=== PATIENT | male | born 1945 | race Caucasian/White ===

== ENCOUNTER → 2018-09-30 | Outpatient (CLI) | payer MEDICARE, OTHER ==
--- NOTE | 2018-09-30 15:51 | MR ---
EXAMINATION TYPE: MR knee LT wo con DATE OF EXAM: 09/30/2018 COMPARISON: Outside left knee x-ray from 2 weeks ago. HISTORY: Pain in left knee per order. In her pain and swelling with history of surgery 7 years ago pe r patient. TECHNIQUE: Multiplanar, multisequence images of the knee is performed without IV contrast. FINDINGS: MEDIAL MENISCUS: Anterior horn is intact without tear. Posterior horn shows horizontal and oblique in creased signal extending to articular surface peripheral lower aspect and superior deeper aspect sagi ttal image 24. Medial extrusion medial meniscus seen on coronal images. LATERAL MENISCUS: Anterior and posterior horns are intact without tear. CRUCIATE LIGAMENTS: The anterior and posterior cruciate ligaments are intact and unremarkable. COLLATERAL LIGAMENTS: The medial collateral ligament and lateral collateral ligament complex are inta ct. There is fluid signal surrounding the medial collateral ligament particularly superficial fibers. There is cystic change noted along deeper fibers. EXTENSOR MECHANISM: Visualized quadriceps and patellar tendons are intact. EFFUSION: There is moderate size suprapatellar joint effusion. POPLITEAL CYST: No popliteal/cm cyst. TRICOMPARTMENT SPACES: Moderate tricompartment joint space loss and spurring is seen. CARTILAGE: Chondromalacia patella is present with some fissuring of articular cartilage lying posteri or patellar pole. There is more prominent thinning of cartilage medial tibial femoral compartment. BONE MARROW SIGNAL: Some areas reactive low T1 and increased T2 signal medial tibial femoral compartm ent joint space noted at site of moles prominent cartilaginous thinning. OTHER: No additional significant abnormality is appreciated. IMPRESSION: 1. Full-thickness tear posterior horn of medial meniscus. Adjacent parameniscal cyst formation noted. 2. Mild MCL sprain injury. 3. Moderate to borderline advanced tricompartment degenerative changes most prominent medial tibial f emoral compartment as detailed above. 4. Moderate suprapatellar joint effusion.
== END | disposition home or self-care (01) ==
LOC: RADMRIMAIN 14:34
PROVIDERS: ATTEND Orthopaedic Surgery
DX: S83.242A Other tear of medial meniscus, current injury, left knee, initial encounter (principal); S83.412A Sprain of medial collateral ligament of left knee, initial encounter; M17.12 Unilateral primary osteoarthritis, left knee

== ENCOUNTER → 2019-01-10 | Outpatient (CLI) | payer MEDICARE, OTHER | END | disposition home or self-care (01) | LOC: LABPAT 12:11 | PROVIDERS: ATTEND Orthopaedic Surgery | DX: Z01.810 Encounter for preprocedural cardiovascular examination (principal); Z01.812 Encounter for preprocedural laboratory examination | CPT/HCPCS: 93005 ==

== ENCOUNTER 2019-01-11 07:22 | Day surgery (SDC) | payer MEDICARE, OTHER ==
[2019-01-09 13:54] VITALS: BMI 33.1
--- NOTE | 2019-01-10 18:35 | HP ---
HISTORY AND PHYSICAL REASON FOR ADMISSION: Surgery is 01/11/2019 HISTORY OF PRESENT ILLNESS: Yazan Sanches is a 73-year-old patient seen with progressive left knee pain. Treatment options were discussed with him. He elected to proceed with arthroscopy. Consent was obtained. PAST MEDICAL HISTORY: Hypertension, hyperlipidemia. PAST SURGICAL HISTORY: None reported. MEDICATIONS: Amlodipine, atorvastatin. ALLERGIES: KEFLEX AND CIPRO. SOCIAL HISTORY: Denies tobacco use. PHYSICAL EXAMINATION: Evaluation of the left knee range of motion 0 to 125. Mild effusion. Tenderness medial joint line. Positive medial Demi's. Ligaments are stable. Hip rotation without pain. Distal neurovascular exam intact. Left knee radiographs revealed moderate osteoarthritis, left knee MRI revealed medial meniscal tear. IMPRESSION: 1. Internal derangement, left knee with medial meniscal tear. 2. Left knee osteoarthritis. 3. Hypertension. 4. Hyperlipidemia. PLAN: Left knee arthroscopy with partial meniscectomy and debridement. Surgery is scheduled for 01/11/2019. MMODL / IJN: [id number] /
[~2019-01-11 07:22] MED LIST: DEXAMETHASONE SOD PHOSPHATE 10 MG/ML 1 ML VIAL IV ONE; HYDROmorphone 0.5 MG/0.5 ML SYRINGE IVP PRN; LACTATED RINGERS 1,000 ML IV SCH; LIDOCAINE 1% 20 ML VIAL (10MG/ML) FOR IV START INTRADERMA PRN; MIDAZOLAM 2 MG/2 ML VIAL IV PRN; ONDANSETRON 4 MG/2 ML VIAL IVP ONE; SCOPOLAMINE 1.5MG/72HR PATCH TRANSDERM ONE
[2019-01-11] MEDS ORDERED: SUCCINYLCHOLINE CHLORIDE 100 MG/5 ML SYR IV ONE (08:40)
[2019-01-11] MEDS ORDERED: LIDOCAINE 1% INJ 10MG/ML (20 ML MDV) ONE (08:40)
[2019-01-11] MEDS ORDERED: fentaNYL (PF) 50 MCG/ML 2 ML AMP ONE (08:40)
[2019-01-11] MEDS ORDERED: PROPOFOL 10 MG/ML 20 ML VIAL IV ONE (08:40)
[2019-01-11] MEDS ORDERED: MIDAZOLAM 2 MG/2 ML VIAL ONE (08:40)
[2019-01-11] MEDS ORDERED: BUPIVACAIN-EPI 0.25%-1:200,000 30 ML VIAL INTRAARTIC ONE (09:15)
--- NOTE | 2019-01-11 09:38 | P.OP ---
Date of Procedure: 01/11/19 Preoperative Diagnosis: Internal derangement left knee Postoperative Diagnosis: 1. Tear medial meniscus left knee 2. Grade 2 chondromalacia medial femoral condyle left knee 3. Grade 2 chondromalacia lateral femoral condyle left knee 4. Grade 4 chondromalacia femoral sulcus left knee 5. Reactive synovitis medial, lateral and suprapatellar compartments left knee Procedure(s) Performed: 1. Arthroscopic partial medial meniscectomy left knee 2. Arthroscopic chondroplasty medial femoral condyle left knee 3. Arthroscopic chondroplasty lateral femoral condyle left knee 4. Arthroscopic chondroplasty femoral sulcus left knee 5. Arthroscopic partial synovectomy medial, lateral and suprapatellar compartments left knee Anesthesia: GETA, local Surgeon: Davie Aragon Estimated Blood Loss (ml): 7 Pathology: none sent Condition: stable Disposition: PACU Indications for Procedure: 73-year-old patient seen with progressive left knee pain. After having treatment options discussed, he elected to proceed with arthroscopy. Operative Findings: see description of procedure Description of Procedure: Patient was taken to the operative suite. Patient underwent a general anesthetic by the department of anesthesia. Patient was given preoperative antibiotics. The left lower extremity was placed in a well-padded arthroscopic leg bo. The left leg was prepped and draped in the normal sterile orthopedic fashion. A lateral parapatellar and suprapatellar incision was made. Trochars were inserted. Arthroscopy was initiated. Suprapatellar pouch revealed thick reactive synovitis. The patellofemoral joint appeared articulate congruently. There was grade 4 chondromalacia of the femoral sulcus with peripheral osteochondral flap tears. There was grade 2 chondral malacia patella. The scope was guided into the medial gutter. No loose bodies or plica were identified. The scope was then guided into the medial compartment. A medial parapatellar incision was made. Trocar inserted followed by probe. There was a complex tear involving the posterior horn medial meniscus. There were grade 2 chondromalacia changes medial femoral condyle with some osteochondral flap tears present. There was thick reactive synovitis anteriorly. I performed a partial medial meniscectomy getting down to stable meniscal tissue. I performed a chondroplasty of the medial femoral condyle. I performed a partial synovectomy. The residual meniscus was stable. There was good decompression of the synovitis. Scope and probe were then guided into the intercondylar notch. Cruciates were identified, probed and found to be stable. The scope and probe were then guided into lateral compartment. The lateral meniscus was probed and found to be stable. There was some mild fraying of the anterior horn lateral meniscus. There were grade 2 chondral malacia changes lateral femoral condyle with some osteochondral flap tears present. There was thick reactive synovitis anteriorly. I performed a chondroplasty lateral femoral condyle. I debrided the mild fraying of the lateral meniscus anteriorly. I performed a partial synovectomy decompressing reactive synovitis. The residual osteochondral surface was stable. There was good decompression of the synovitis. The scope was in guided back into the suprapatellar compartment. I introduced a motorized shaver into the suprapatellar compartment. I debrided some piecemeal fragments of meniscus I encountered. I performed a partial synovectomy decompressing the thick reactive synovitis. I performed a chondroplasty of the femoral sulcus. The shaver was removed. There was good decompression of synovitis. I took one more look around the entire knee, no residual debris. Instruments were now removed from the joint. The joint was infiltrated with .25% Marcaine. Steri-Strips were applied to the portal sites. Sterile dressings were applied. The patient was placed into a DALJIT hose. No tourniquet was utilized. The patient was awakened, transferred to a bed and taken to recovery stable satisfactory condition.
[2019-01-11 09:42] VITALS: TEMP 98.4
[2019-01-11 10:11] VITALS: BP 135/78; PULSE 62; RESP 16
== END 2019-01-11 11:28 | disposition home or self-care (01) ==
LOC: OR 07:22
PROVIDERS: ATTEND Orthopaedic Surgery
DX: M23.222 Derangement of posterior horn of medial meniscus due to old tear or injury, left knee (principal); M23.242 Derangement of anterior horn of lateral meniscus due to old tear or injury, left knee; M65.862 Other synovitis and tenosynovitis, left lower leg; M94.262 Chondromalacia, left knee; M17.12 Unilateral primary osteoarthritis, left knee; I10 Essential (primary) hypertension; E78.5 Hyperlipidemia, unspecified; N40.0 Benign prostatic hyperplasia without lower urinary tract symptoms; Z79.899 Other long term (current) drug therapy; Z88.1 Allergy status to other antibiotic agents; Z90.49 Acquired absence of other specified parts of digestive tract; Z98.890 Other specified postprocedural states
CPT/HCPCS: 29880; J2250; J1100; J0690; J2405; J2001; J3010; J0330; J2704

== ENCOUNTER 2022-12-24 10:14 | Day surgery (SDC) | payer MEDICARE, OTHER ==
--- NOTE | 2022-12-24 01:15 | HP ---
HISTORY AND PHYSICAL DATE OF SURGERY: 12/24/2022. HISTORY OF PRESENT ILLNESS: Yazan Sanches is a 77-year-old gentleman seen with progressive right shoulder pain. We discussed options for treatment. He had postop right shoulder arthroscopy. Consent regarding the procedure was obtained. Medical clearance was provided by Dr. Paula's office. PAST MEDICAL HISTORY: Hypertension, hyperlipidemia. PAST SURGICAL HISTORY: Knee arthroscopy. MEDICATIONS: 1. Amlodipine. 2. Atorvastatin. ALLERGIES: 1. Keflex. 2. Cipro. SOCIAL HISTORY: Denies tobacco use. PHYSICAL EVALUATION OF THE RIGHT SHOULDER: Flexion is 130 degrees, abduction 140 degrees, external rotation is 50 degrees with severe weakness and pain. Tenderness along the anterolateral acromion, rotator cuff insertion site. Impingement was positive at 90 degrees. Cross-body adduction sign is positive. Drop-arm sign is positive. Distal neurovascular exam is intact. IMAGING STUDIES: Radiographs of the right shoulder revealed a type 2 acromion, severe acromioclavicular joint osteoarthritis and cystic changes of the tuberosity. Right shoulder MRI revealed a retracted rotator cuff tendon tear along with acromioclavicular joint osteoarthritis and labral tear. IMPRESSION: 1. Right shoulder impingement with rotator cuff tear. 2. Right shoulder acromioclavicular joint osteoarthritis. 3. Hypertension. 4. Hyperlipidemia. PLAN: Right shoulder arthroscopy with subacromial decompression, arthroscopic rotator cuff repair, Srinivas procedure and debridement. MMODL / IJN: [id number] /
[~2022-12-24 10:14] MED LIST changes: -DEXAMETHASONE SOD PHOSPHATE 10 MG/ML 1 ML VIAL IV ONE; +DEXAMETHASONE SOD PHOSPHATE 4 MG/ML 1 ML VIAL IV ONE; +LIDOCAINE 1% (10MG/ML) FOR IV START INTRADERMA PRN; -LIDOCAINE 1% 20 ML VIAL (10MG/ML) FOR IV START INTRADERMA PRN; -MIDAZOLAM 2 MG/2 ML VIAL IV PRN; -SCOPOLAMINE 1.5MG/72HR PATCH TRANSDERM ONE; +droPERidol 5 MG/2 ML VIAL IVP ONE
[2022-12-24 10:54] VITALS: RESP 16
[2022-12-24] MEDS ORDERED: MIDAZOLAM 2 MG/2 ML VIAL IVP ONE (11:20)
[2022-12-24] MEDS ORDERED: fentaNYL (PF) 50 MCG/1 ML VIAL IVP ONE (11:20)
--- NOTE | 2022-12-24 11:55 | P.ANPRN ---
Procedure Note - Anesthesia - Nerve Block Performed Right Interscalene Single Time Out Performed: Yes (1120) Date of Procedure: 12/24/22 Procedure Start Time: Procedure Stop Time: Location of Patient: PreOp Indication: Acute Post-Operative Pain, Requested by Surgeon Specifically requested for management of pain by DrCuong: Davie Aragon Sedation Type: Sedate with meaningful contact maintained Preparation: Sterile Prep Position: Supine Catheter: None Needle Types: Pajunk Needle Gauge: 21 Ultrasound used to visualize needle placement: Yes Ultrasound used to observe medication spread: Yes Injectate: 0.5% Ropivacaine (see comment for volume) (30cc) Blood Aspirated: No Pain Paresthesia on Injection Noted: No Resistance on Injection: Normal Image Stored and Saved: Yes Events: Uneventful and Well Tolerated
[2022-12-24] MEDS ORDERED: ePHEDrine 50 MG/ML 1 ML VIAL ONE (12:48)
[2022-12-24] MEDS ORDERED: ROCURONIUM 10 MG/ML (5 ML VIAL) IV ONE (12:48)
[2022-12-24] MEDS ORDERED: PROPOFOL 10 MG/ML 20 ML VIAL IV ONE (12:48)
[2022-12-24] MEDS ORDERED: GLYCOPYRROLATE 0.2 MG/ML 2 ML VIAL ONE (12:48)
[2022-12-24] MEDS ORDERED: SUCCINYLCHOLINE CHLORIDE 200 MG/10 ML VIAL IV ONE (12:48)
[2022-12-24] MEDS ORDERED: WATER FOR INJECTION, STERILE 10 ML VIAL IV ONE (12:48)
[2022-12-24] MEDS ORDERED: fentaNYL (PF) 50 MCG/ML 2 ML AMP ONE (12:48)
[2022-12-24] MEDS ORDERED: LIDOCAINE 1% INJ 10MG/ML (20 ML MDV) ONE (12:48)
[2022-12-24] MEDS ORDERED: NEOSTIGMINE 1 MG/ML 10 ML VIAL ONE (12:48)
[2022-12-24] MEDS ORDERED: LACTATED RINGERS 1,000 ML IV ONE (13:27)
--- NOTE | 2022-12-24 14:32 | P.OP ---
Date of Procedure: 12/24/22 Preoperative Diagnosis: Right shoulder impingement Postoperative Diagnosis: 1. Right shoulder large retracted rotator cuff tendon tear 2. Right shoulder impingement 3. Right shoulder acromioclavicular joint osteoarthritis Procedure(s) Performed: 1. Right shoulder arthroscopic rotator cuff repair 2. Right shoulder arthroscopic subacromial decompression 3. Right shoulder arthroscopic Srinivas procedure Implants: 3Arthrex 4.75 swivel lock anchors 1Arthrex 5.5 swivel lock anchor Anesthesia: GETA, regional (Interscalene block) Surgeon: aDvie Aragon Technical Administrative Assistant #1: Walter Cobb Estimated Blood Loss (ml): 11 Pathology: none sent Condition: stable Disposition: PACU Indications for Procedure: 77-year-old patient seen with progressive right shoulder pain. After having treatment options discussed, he elected to proceed with arthroscopy. Operative Findings: See description of procedure Description of Procedure: Patient underwent an interscalene block by department of anesthesia. The patient was then taken to the operative suite. The patient underwent a general anesthetic by the department of anesthesia. The patient was placed into a lateral position and secured. There was appropriate padding of the bony prominence. Right shoulder was then prepped and draped in normal sterile orthopedic fashion. We placed the extremity in 10 pounds of longitudinal traction. A posterior incision was now made for a posterior working portal site. The trocar and cannula were inserted into the glenohumeral joint. Arthroscopy was initiated. Spinal needle was now inserted anteriorly, to ascertain the anterior working portal site. An incision was now made in that area, a trocar was inserted followed by a probe. The biceps tendon was absent. There were grade 1 chondromalacia changes of the glenohumeral joint. The labrum was diminutive but without evidence of any tearing. There was a large rotator cuff tear visualized from the glenohumeral joint. At this point instruments were removed from the glenohumeral joint. Utilizing the posterior working portal site, the trocar and cannula were inserted into the subacromial space. Arthroscopy initiated. I made an incision 2 fingerbreadths lateral to the acromion. I introduced my trocar followed by my ArthroCare ablator. I now began ablating thick subacromial bursal tissue, which exposed the undersurface of the anterior acromion. There was diminished subacromial space. There was a very prominent anterior acromion. A motorized bur was introduced and a subacromial decompression was performed. I also excised some osteophytes off the inferior aspect of the distal clavicle. The AC joint was visualized and noted to be fairly arthritic. The motorized bur was introduced in the anterior portal site and a Srinivas procedure was performed without difficulty, decompressing the AC joint nicely. I turned my attention to the rotator cuff. There was a 3.5 cm rotator cuff tear with about 2 cm of retraction. I debrided the margins getting down to stable tendon tissue. I release the tendon along the proximal area. I was not able to mobilize the tendon over the footprint. I introduced my motorized bur and abraded the footprint area, getting some petechial bleeding. I now made an accessory portal site off the lateral aspect of the acromion. I punched 2 holes medial for medial row fixation with the assistance of Sher NORTON carefully tapping the punch with a mallet as I held the punch and the camera. I now introduced both anchors into the pre-punched holes and Sher NORTON tapped them with the mallet as I held anchors and the camera. Sher NORTON now screwed the anchors in place a while I held the anchor guide and camera. All 8 limbs of suture were now passed through good bites of rotator cuff tendon. I now punched 2 holes for lateral row fixation again I held the punch and camera while Sher NORTON used a mallet to tap in the punch. We now passed sutures through both anchors and individually I introduced the anchors into the pre-punch holes I held the anchor guide in position with one hand holding the camera with the other hand while Sher NORTON tensioned the sutures and screwed in the anchors one at a time. All residual suture limbs were now clipped. We had good compression of the tendon along the entire footprint. Instruments now removed from the portal sites. All portal sites were approximated with nylon suture. Sterile dressings were applied followed by a shoulder immobilizer. Walter NORTON assisted in this complex case. The patient was awakened, transferred to a bed, and taken to recovery in stable condition.
[2022-12-24 14:36] VITALS: TEMP 97
[2022-12-24 16:31] VITALS: BP 158/92; PULSE 56
== END 2022-12-24 16:45 | disposition home or self-care (01) ==
LOC: OR 10:14
PROVIDERS: ATTEND Orthopaedic Surgery
DX: M75.101 Unspecified rotator cuff tear or rupture of right shoulder, not specified as traumatic (principal); M75.41 Impingement syndrome of right shoulder; M19.011 Primary osteoarthritis, right shoulder; G89.18 Other acute postprocedural pain; I10 Essential (primary) hypertension; E78.5 Hyperlipidemia, unspecified; Z79.899 Other long term (current) drug therapy; Z98.890 Other specified postprocedural states; Z88.1 Allergy status to other antibiotic agents
CPT/HCPCS: 29827; 29826; 64415; J2250; J1100; J0690; J2405; J3010

== ENCOUNTER 2022-12-30 22:40 | Emergency (ER) | payer MEDICARE, OTHER ==
[2022-12-30 23:14] VITALS: RESP 18
--- NOTE | 2022-12-31 01:01 | US ---
EXAM: US Duplex Right Upper Extremity Veins CLINICAL HISTORY: ITS.REASON US Reason: swelling to arm. TECHNIQUE: Real-time duplex ultrasound scan of the right upper extremity veins integrating B-mode two-dimensional vascular structure, Doppler spectral analysis, color flow Doppler imaging and compression. COMPARISON: No relevant prior studies available. FINDINGS: Deep veins: Unremarkable. No DVT in the internal jugular, subclavian, axillary, or brachial veins. The veins demonstrate normal color flow, are normally compressible, with normal phasic flow and/or augmentation response. Superficial veins: Unremarkable. No thrombus in the visualized basilic and cephalic veins. Soft tissues: No acute findings. IMPRESSION: No evidence of right upper extremity venous thrombosis.
--- NOTE | 2022-12-31 01:17 | ED ---
Extremity Problem HPI - General Chief complaint: Extremity Problem,Nontraumatic Stated complaint: Shoulder swelling post op Time Seen by Provider: 12/30/22 23:26 Source: patient Mode of arrival: ambulatory Limitations: no limitations - History of Present Illness Initial comments: 77-year-old male with history of rotator cuff surgery on 12/[address] Aragon presenting with chief complaint of swelling to the right arm. Patient noticed the swelling this evening. He is having no pain. He states this postop pain has been well-controlled. No fevers or chills. No redness. Incisions show no erythema swelling or discharge. No chest pain or difficulty breathing. No palpitations. No numbness or tingling. - Related Data Home Medications Medication Instructions Recorded Confirmed Atorvastatin [Lipitor] 5 mg PO DAILY 01/09/19 12/24/22 amLODIPine [Norvasc] 5 mg PO QAM 01/09/19 12/24/22 Apixaban [Eliquis] 5 mg PO BID 12/18/22 12/24/22 Bisoprolol Fumarate 5 mg PO DAILY 12/18/22 12/24/22 Previous Rx's Medication Instructions Recorded HYDROcodone/APAP 5-325MG [[place] 1 tab PO Q6HR PRN #28 tab 12/24/22 5-325] Allergies Allergy/AdvReac Type Severity Reaction Status Date / Time adhesive tape Allergy Unknown Verified 12/30/22 23:02 ciprofloxacin [From Cipro] Allergy Rash/Hives Verified 12/30/22 23:02 Review of Systems ROS Statement: Those systems with pertinent positive or pertinent negative responses have been documented in the HPI. ROS Other: All systems not noted in ROS Statement are negative. Past Medical History Past Medical History: Atrial Fibrillation, Cancer, Hypertension, Prostate Disorder, Skin Disorder Additional Past Medical History / Comment(s): hx basal and squamous cell skin ca, new a fib in 11/27/22 rosecea History of Any Multi-Drug Resistant Organisms: None Reported Past Surgical History: Orthopedic Surgery, Prostate Surgery Additional Past Surgical History / Comment(s): elizabeth knee arthroscopy Past Anesthesia/Blood Transfusion Reactions: Previous Problems w/ Anesthesia Additional Past Anesthesia/Blood Transfusion Reaction / Comment(s): "I wake up goofy" Past Psychological History: No Psychological Hx Reported Smoking Status: Former smoker Past Alcohol Use History: Occasional Past Drug Use History: None Reported - Past Family History Brother(s) Family Medical History: Cancer General Exam Limitations: no limitations General appearance: alert, in no apparent distress Head exam: Present: atraumatic, normocephalic, normal inspection Eye exam: Present: normal appearance, EOMI Neck exam: Present: normal inspection, full ROM Respiratory exam: Present: normal lung sounds bilaterally. Absent: respiratory distress, wheezes, rales, rhonchi, stridor Cardiovascular Exam: Present: regular rate, normal rhythm, normal heart sounds. Absent: systolic murmur, diastolic murmur, rubs, gallop, clicks Right Shoulder Exam: Present: normal inspection. Absent: tenderness, swelling Upper Arm exam: Present: normal inspection. Absent: tenderness, swelling Forearm Wrist exam: Present: normal inspection. Absent: tenderness, swelling Vascular: Present: radial pulse (2+). Absent: vascular compromise Neurological exam: Present: alert, oriented X3 Psychiatric exam: Present: normal affect, normal mood Skin exam: Present: warm, dry, intact, normal color. Absent: rash Course Vital Signs 12/30/22 23:03 Temperature 97.5 F L Pulse Rate 56 L Respiratory 18 Rate Blood Pressure 160/83 O2 Sat by Pulse 95 Oximetry Medical Decision Making - Medical Decision Making Was pt. sent in by a medical professional or institution ([facility]ER[facility] Richards, PUBLIC BATH ATTENDANT, urgent care, hospital, or longterm...) When possible be specific @ -No Did you speak to anyone other than the patient for history (EMS, parent, family, police, friend...)? What history was obtained from this source @ -No Did you review nursing and triage notes (agree or disagree)? Why? @ -I reviewed and agree with nursing and triage notes Were old charts reviewed (outside hosp., previous admission, EMS record, old EKG, old radiological studies, urgent care reports/EKG's, longterm records)? Report findings @ -No old charts were reviewed Differential Diagnosis (chest pain, altered mental status, abdominal pain women, abdominal pain men, vaginal bleeding, weakness, fever, dyspnea, syncope, headache, dizziness, GI bleed, back pain, seizure, CVA, palpatations, mental health, musculoskeletal)? @ -Differential Musculoskeletal Muscular strain, contusion, ligament sprain, fracture, arthritis, septic arthritis, bursitis, cellulitis, muscle spasm, nerve compression, DVT, arterial occlusion, herpes zoster, electrolyte abnormality, tumor.... This is not meant to be in all inclusive list EKG interpreted by me (3pts min.). @ -As above X-rays interpreted by me (1pt min.). @ -None done CT interpreted by me (1pt min.). @ -None done U/S interpreted by me (1pt. min.). @ -Ultrasound negative for DVT What testing was considered but not performed or refused? (CT, X-rays, U/S, labs)? Why? @ -None What meds were considered but not given or refused? Why? @ -None Did you discuss the management of the patient with other professionals ( professionals i.e. , PA, PUBLIC BATH ATTENDANT, lab, RT, psych nurse, foster care social worker, [employer] reverse winder, teacher, credit compliance officer, cyanide case hardener)? Give summary @ -No Was smoking cessation discussed for >3mins.? @ -No Was critical care preformed (if so, how long)? @ -No Were there social determinants of health that impacted care today? How? (Homelessness, low income, unemployed, alcoholism, drug addiction, transportation, low edu. Level, literacy, decrease access to med. care, residential, rehab)? @ -No Was there de-escalation of care discussed even if they declined (Discuss DNR or withdrawal of care, Hospice)? DNR status @ -No What co-morbidities impacted this encounter? (DM, HTN, Smoking, COPD, CAD, Cancer, CVA, ARF, Chemo, Hep., AIDS, mental health diagnosis, sleep apnea, morbid obesity)? @ -None Was patient admitted / discharged? Hospital course, mention meds given and route, prescriptions, significant lab abnormalities, going to OR and other pertinent info. @ -77-year-old male presenting with chief complaint of right arm swelling. Patient has history of recent rotator cuff surgery to the right shoulder. No chest pain or difficulty breathing. Swelling has improved. He is neurovascularly intact. Ultrasound negative for DVT. Patient educated on today's findings discharged home. Follow-up with PCP. Report back to ER with any new or worsening symptoms. Discussed return parameters and answered all questions. Patient conveyed verbal understanding and agreed to the plan. I discussed this case in detail with my attending Dr. Tian Undiagnosed new problem with uncertain prognosis? @ -No Drug Therapy requiring intensive monitoring for toxicity (Heparin, Nitro, Insulin, Cardizem)? @ -No Were any procedures done? @ -No Diagnosis/symptom? @ -arm Swelling Acute, or Chronic, or Acute on Chronic? @ -Acute Uncomplicated (without systemic symptoms) or Complicated (systemic symptoms)? @ -Uncomplicated Side effects of treatment? @ -No Exacerbation, Progression, or Severe Exacerbation? @ -No Poses a threat to life or bodily function? How? (Chest pain, [place], [place], pneumonia, PE, COPD, DKA, ARF, appy, cholecystitis, CVA, Diverticulitis, Homicidal, Suicidal, threat to staff... and all critical care pts) @ -No Disposition Clinical Impression: Swelling of arm Disposition: HOME SELF-CARE Condition: Good Additional Instructions: Follow-up with PCP and surgeon. Report back to ER with any new or worsening symptoms. Is patient prescribed a controlled substance at d/c from ED?: No Referrals: Antonino Paula MD [Primary Care Provider] - 1-2 days Davie Aragon DO [Doctor of Osteopathic Medicine] - 1-2 days Time of Disposition: 01:17
[2022-12-31 03:18] VITALS: BP 156/73; PULSE 62; TEMP 98.1
== END 2022-12-31 01:25 | disposition home or self-care (01) ==
LOC: EC 22:40
DX: T81.89XA Other complications of procedures, not elsewhere classified, initial encounter (principal); M79.89 Other specified soft tissue disorders; I48.91 Unspecified atrial fibrillation; I10 Essential (primary) hypertension; Z87.891 Personal history of nicotine dependence; Z88.1 Allergy status to other antibiotic agents; Z91.048 Other nonmedicinal substance allergy status; Z79.01 Long term (current) use of anticoagulants; Z79.899 Other long term (current) drug therapy; Y69 Unspecified misadventure during surgical and medical care
CPT/HCPCS: 99283

== ENCOUNTER → 2023-08-09 | Outpatient (CLI) | payer MEDICARE, OTHER ==
[2023-08-09 10:21] LABS: HCT 47.5 % (39.0-53.0); HGB 15.4 gm/dL (13.0-17.5); MCH 31.4 pg (25.0-35.0); MCHC 32.3 g/dL (31.0-37.0); MCV 97.1 fL (80.0-100.0); Mean Platelet Volume 10.7; Platelet Count 160 k/uL (150-450); RDW 13.6 % (11.5-15.5); WBC 6.2 k/uL (3.8-10.6)
[2023-08-09 15:37] LABS: Blood Urea Nitrogen 19.4 mg/dL (9.0-27.0)
[2023-08-09 15:38] LABS: Carbon Dioxide 25.2 mmol/L (21.6-31.8); Chloride 106 mmol/L (96-109); Potassium 4.2 mmol/L (3.5-5.5); Sodium 142 mmol/L (135-145)
== END | disposition home or self-care (01) ==
LOC: LABPAT 09:40
PROVIDERS: ATTEND Internal Medicine Clinical Cardiac Electrophysiology
DX: Z01.812 Encounter for preprocedural laboratory examination (principal); I48.0 Paroxysmal atrial fibrillation; I49.5 Sick sinus syndrome
CPT/HCPCS: 80051; 82565; 84520; 85027

== ENCOUNTER 2023-09-02 09:46 | Day surgery (SDC) | payer MEDICARE, OTHER ==
[2023-09-01 10:15] VITALS: BMI 32.6
[~2023-09-02 09:46] MED LIST changes: -DEXAMETHASONE SOD PHOSPHATE 4 MG/ML 1 ML VIAL IV ONE; -LACTATED RINGERS 1,000 ML IV SCH; -ONDANSETRON 4 MG/2 ML VIAL IVP ONE; -droPERidol 5 MG/2 ML VIAL IVP ONE
[2023-09-02] MEDS: IV FLUID CONTINUATION 1,000 ML IV ONE (10:02)
[2023-09-02] MEDS: SODIUM CHLORIDE 0.9% 1,000 ML IV SCH (10:05)
[2023-09-02 10:22] LABS: Basophils % (A) 1 %; Eosinophils # (A) 0.2 k/uL (0-0.7); Eosinophils % (A) 3 %; HCT 49.2 % (39.0-53.0); HGB 16.4 gm/dL (13.0-17.5); Lymphocytes # (A) 1.8 k/uL (1.0-4.8); Lymphocytes % (A) 25 %; MCHC 33.3 g/dL (31.0-37.0); MCV 96.1 fL (80.0-100.0); Mean Platelet Volume 10.2; Monocytes # (A) 0.5 k/uL (0-1.0); Monocytes % (A) 7 %; Neutrophils # (A) 4.6 k/uL (1.3-7.7); Neutrophils % (A) 63 %; Platelet Count 128 k/uL (150-450); RBC 5.12 m/uL (4.30-5.90); RDW 13.9 % (11.5-15.5); WBC 7.4 k/uL (3.8-10.6)
[2023-09-02 10:46] LABS: ALT 37 U/L (4-49); AST 33 U/L (17-59); African American GFR (CKD) >90 (>60 ml/min/1.73 sqM); Albumin 4.5 g/dL (3.5-5.0); Alkaline Phosphatase 70 U/L (38-126); Anion Gap 8 mmol/L; Blood Urea Nitrogen 20 mg/dL (9-20); Calcium 9.6 mg/dL (8.4-10.2); Carbon Dioxide 25 mmol/L (22-30); Chloride 108 mmol/L (98-107); Glucose 103 mg/dL (74-99); Non-African American GFR(CKD) 83 (>60 ml/min/1.73 sqM); Potassium 4.4 mmol/L (3.5-5.1); Sodium 141 mmol/L (137-145); Total Bilirubin 1.3 mg/dL (0.2-1.3); Total Protein 6.8 g/dL (6.3-8.2)
[2023-09-02] MEDS ORDERED: WATER FOR INJECTION, STERILE 10 ML VIAL IV ONE (11:38)
[2023-09-02] MEDS ORDERED: fentaNYL (PF) 50 MCG/ML 2 ML AMP ONE (11:38)
[2023-09-02] MEDS ORDERED: HEPARIN SODIUM,PORCINE 10,000 UNIT/ML 1 ML VIAL ONE (11:38)
[2023-09-02] MEDS ORDERED: PHENYLEPHRINE-0.9% NACL SYG 1,000 MCG/10 ML SYRINGE ONE (11:38)
[2023-09-02] MEDS ORDERED: LIDOCAINE 2% (PF) 20 MG/ML 5 ML VIAL ONE (11:38)
[2023-09-02] MEDS ORDERED: PHENYLEPHRINE 10 MG/ML VIAL ONE (11:38)
[2023-09-02] MEDS ORDERED: SUCCINYLCHOLINE CHLORIDE 200 MG/10 ML VIAL IV ONE (11:38)
[2023-09-02] MEDS ORDERED: ePHEDrine 50 MG/ML 1 ML VIAL ONE (11:38)
[2023-09-02] MEDS ORDERED: PROPOFOL 10 MG/ML 20 ML VIAL IV ONE (11:38)
[2023-09-02] MEDS ORDERED: GLYCOPYRROLATE 0.2 MG/ML 2 ML VIAL ONE (11:38)
[2023-09-02] MEDS: HEPARIN SODIUM,PORCINE 10,000 UNIT in SODIUM CHLORIDE 0.9% 1,000 ML IRRIGATION ONE (11:40)
[2023-09-02] MEDS: HEPARIN SODIUM,PORCINE (1 ML) 2,500 UNIT in SODIUM CHLORIDE 0.9% 250 ML IRRIGATION ONE (11:40)
--- NOTE | 2023-09-02 12:03 | P.HPCAR ---
History of Present Illness This is Dr. 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 longest for 2.8 seconds in the early hours of the morning LVH Biatrial enlargement Preserved systolic function Sleep apnea Central obesity PLAN: A-fib ablation Stop bisoprolol thereafter Reassess for bradycardia thereafter Continue anticoagulation with Xarelto HPI Patient continues to have episodes of atrial fibrillation with RVR as well as very frequent pauses mostly in the early hours of the morning Denies any syncope chest pain loss of consciousness presyncope orthopnea or lower extremity edema ROS: No fever chills or rigors, no cough, phlegm or expectoration, no nausea, vomiting or diarrhea, no hematuria, dysuria, no musculoskeletal complaints, no strokes or seizures, no skin lesions. 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 of Rosacea. See Dr. Leo's H&P. History of Any Multi-Drug Resistant Organisms: None Reported Past Surgical History: Orthopedic Surgery, Prostate Surgery Additional Past Surgical History / Comment(s): elizabeth knee arthroscopy, TURP Past Anesthesia/Blood Transfusion Reactions: No Reported Reaction Additional Past Anesthesia/Blood Transfusion Reaction / Comment(s): "I wake up goofy" Past Psychological History: No Psychological Hx Reported Smoking Status: Former smoker Past Alcohol Use History: Occasional Additional Past Alcohol Use History / Comment(s): quit approx 1983, smoked from age 16 (1962) 1ppd Past Drug Use History: None Reported - Past Family History Brother(s) Family Medical History: Cancer Additional Family Medical History / Comment(s): stomach Physical Examination Vital Signs Temp Pulse Resp BP BP Pulse Ox 09/02/23 10:13 97.3 F L 40 L 16 188/70 167/77 97 Intake and Output 09/01/23 09/02/23 09/02/23 22:59 06:59 14:59 Intake Total 50 Balance 50 Intake: IV 50 Other: Weight 101.8 kg Results 09/02/23 10:14 09/02/23 10:14 Cardiac Enzymes 09/02/23 Range/Units 10:14 AST 33 (17-59) U/L CBC 09/02/23 Range/Units 10:14 WBC 7.4 (3.8-10.6) k/uL RBC 5.12 (4.30-5.90) m/uL Hgb 16.4 (13.0-17.5) gm/dL Hct 49.2 (39.0-53.0) % Plt Count 128 L (150-450) k/uL Comprehensive Metabolic Panel 09/02/23 Range/Units 10:14 Sodium 141 (137-145) mmol/L Potassium 4.4 (3.5-5.1) mmol/L Chloride 108 H (98-107) mmol/L Carbon Dioxide 25 (22-30) mmol/L BUN 20 (9-20) mg/dL Creatinine 0.89 (0.66-1.25) mg/dL Glucose 103 H (74-99) mg/dL Calcium 9.6 (8.4-10.2) mg/dL AST 33 (17-59) U/L ALT 37 (4-49) U/L Alkaline Phosphatase 70 (38-126) U/L Total Protein 6.8 (6.3-8.2) g/dL Albumin 4.5 (3.5-5.0) g/dL Current Medications Generic Name Dose Route Start Last Admin Trade Name Freq PRN Reason Stop Dose Admin Hydromorphone HCl 0.5 mg 09/02/23 07:00 Hydromorphone 0.5 Mg/0.5 Ml Syringe IVP 09/02/23 23:00 Q5M PRN Phase 1 or 2 - Pain Control Lactated Ringer's 1,000 mls @ 20 mls/hr 09/02/23 05:48 Lactated Ringers IV 10/02/23 05:47 .Q24H SIL Sodium Chloride 1,000 mls @ 20 mls/hr 09/02/23 05:48 09/02/23 10:05 Saline 0.9% IV 10/02/23 05:47 20 mls/hr .Q24H SIL Administration Lidocaine HCl 0.1 ml 09/02/23 05:48 Lidocaine 1% (10mg/Ml) For Iv Start INTRADERMA 10/02/23 05:47 PER PROTOCOL PRN IV Start Intake and Output 09/01/23 09/02/23 09/02/23 22:59 06:59 14:59 Intake Total 50 Balance 50 Intake: IV 50 Other: Weight 101.8 kg Patient Weight 09/03/23 06:59 Weight 101.8 kg 09/02/23 10:14 09/02/23 10:14
[2023-09-02] MEDS ORDERED: LIDOCAINE 1% INJ 10MG/ML (20 ML MDV) ONE ×2 (12:04→16:33)
[2023-09-02] MEDS: LIDOCAINE 1% INJ 10MG/ML (20 ML MDV) SQ ONE (12:06)
[2023-09-02] MEDS: HEPARIN SOD,PORK IN 0.45% NACL 25,000 UNIT in 0.45% NACL 1 250ML.BAG IV ONE (12:30)
[2023-09-02] MEDS: IOPAMIDOL-370 100ML BTL INJ ONE (13:38)
--- NOTE | 2023-09-02 14:56 | P.EPPROC ---
- EP Procedure Note Electrophysiology Procedure Note: PROCEDURE A. fib ablation with PVI and left atrial septal ablation DIAGNOSIS Paroxysmal atrial fibrillation, symptomatic, refractory to therapy RESULT No left atrial appendage mass seen on intracardiac echo, LVH with preserved systolic function Elevated LA pressures, mean pressure 23 mmHg Right atrial pressure, mean equals 13 mmHg Successful A. fib ablation/pulmonary vein isolation of all veins using cryo- ablation Complete entrance block in all 4 veins confirmed Ablation of the left atrial septum No evidence for phrenic nerve injury Esophageal deflection YES PROCEDURE DETAILS Written informed consent prior to procedure. Patient brought to the EP lab. General anesthesia given. Heparin administered. A city maintained above 300 seconds Both groins prepped and draped per protocol and venous sheaths placed. Esophagus intubated, circa catheter for temperature monitoring an endoscope for possible esophageal deflection. Phrenic nerve monitoring performed. Esophageal temperature monitoring performed. Esophageal deflection performed if circa catheter overlapping with the balloon or circa temperature less than 27.5C Intracardiac echocardiography performed. Pericardium evaluated. Left atrial appendage evaluated. Left atrium evaluated along with pulmonary veins Transseptal catheterization performed under fluoroscopic guidance and intracardiac echo guidance Cryoablation sheath exchanged, balloon catheter along with achieve catheter placed in the left atrium. Pulmonary veins isolated in the following sequence: Left superior pulmonary vein followed by left inferior pulmonary vein, followed by right inferior pulmonary vein and lastly right superior pulmonary vein. Phrenic nerve stimulation along with capture thresholds within the SVC and right superior pulmonary vein to identify the phrenic nerve proximity to the cryo- balloon. Pulmonary veins isolated and confirmed with entrance and exit block. Phrenic nerve integrity confirmed at the end of the procedure Ablation of the left atrial septum performed with cannulation of the superior branch of the right inferior as well as the inferior branch of the right superior vein to achieve ablation of the posterior septum of the left atrium. Ablation of electrograms confirmed Diagnostic catheters for the high right atrium, His bundle, coronary sinus placed. LA and RA pressures recorded RA pressure: 18/5/13 LA pressure: 45/8/23 Diagnostic EP study with coronary sinus pacing and recording Baseline measurements: Sinus cycle length 1506, NM interval 121 ms, QRS 101 ms AH 75 ms and HV interval 41 ms Venous sheaths were removed and hemostasis assured with a closure device. Patient extubated and transferred to recovery Increase procedural time Very angulated right inferior pulmonary vein. Multiple attempts were made to achieve adequate occlusion at the level of the antrum. Finally we were able to occlude the vein by subselected and its inferior most branch and performing successful ablation with isolation at an antral level The right superior pulmonary vein was a very large vein and it was only after cannulating its inferior branch that complete isolation was successfully achieved. An extra RF lesion was given just outside the roof of the right superior pulmonary vein for an antral level ablation. Complete abatement of electrograms noted within the vein as well as around the antrum Ablation of the septum was successfully performed and no atrial electrograms were noted in that region thereafter PROCEDURES PERFORMED Diagnostic EP study CS pacing and recording Left and right transseptal catheterization Catheter the mapping of the tachycardia Intracardiac echocardiography Pulmonary vein isolation with transseptal and comprehensive EPS, [id number] Extended procedure duration Linear ablation, left atrium, [id number]
[2023-09-02] MEDS ORDERED: ACETAMINOPHEN TAB 325 MG TAB PO PRN (14:57)
--- NOTE | 2023-09-02 15:05 | P.PRLE ---
RE: VerónicaYazan Dear Mara Mr. Sanches underwent an A-fib ablation with [place] PVI. As you know he has tachybradycardia syndrome with very frequent pauses I have not stopped his bisoprolol and he will continue taking amlodipine as well as his anticoagulation as before Thank you for entrusting me with the care of the patient Warm regards Sincerely Jarrett Leo
[2023-09-02] MEDS: DEXAMETHASONE SOD PHOSPHATE 4 MG/ML 1 ML VIAL IV ONE (16:25)
[2023-09-02] MEDS: droPERidol 5 MG/2 ML VIAL IVP ONE (16:26)
[2023-09-02] MEDS: ONDANSETRON 4 MG/2 ML VIAL IVP ONE (16:26)
[2023-09-02] MEDS: LACTATED RINGERS 1,000 ML IV SCH (18:05)
[2023-09-02] MEDS: RIVAROXABAN 20 MG TAB PO SCH (20:46)
[2023-09-03] MEDS: ACETAMINOPHEN IV (For NPO) 1,000 MG in EMPTY BAG 1 BAG IVPB ONE (05:33)
--- NOTE | 2023-09-03 07:35 | P.DS ---
Providers Attending physician: Jarrett Leo Primary care physician: [facility] Course: Patient is doing well. No chest discomfort dizziness or lightheadedness His sore throat is better No symptoms On examination his blood pressure is in the normal range After stopping bisoprolol, his heart rates are in the 50s Twelve-lead EKG is normal post A-fib ablation Groins of healed well no hematoma, small bruising Blood pressure 124/69 mmHg Impression Paroxysmal atrial fibrillation with RVR Tachybradycardia syndrome Hypertension Central obesity Status post PVI and left atrial septal ablation Plan Discharge home today Continue rivaroxaban Continue antihypertensive therapy with amlodipine Stop bisoprolol completely Uninterrupted anticoagulation at least for the next 2 months Long-term anticoagulation indicated Patient Condition at Discharge: Stable Plan - Discharge Summary Discharge Rx Participant: Yes New Discharge Prescriptions: Discontinued Bisoprolol Fumarate 5 mg PO HS No Action amLODIPine [Norvasc] 5 mg PO QAM Atorvastatin [Lipitor] 5 mg PO DAILY Rivaroxaban [Xarelto] 20 mg PO HS Discharge Medication List Atorvastatin [Lipitor] 5 mg PO DAILY 01/09/19 [History] amLODIPine [Norvasc] 5 mg PO QAM 01/09/19 [History] Rivaroxaban [Xarelto] 20 mg PO HS 09/01/23 [History] Follow up Appointment(s)/Referral(s): Jrarett Leo MD [STAFF PHYSICIAN] - 1 Week Patient Instructions/Handouts: Cardiac Ablation (DC) Activity/Diet/Wound Care/Special Instructions: Post EP study - Ablation instructions 1. Keep access sites dry for 2 days. 2. No heavy lifting or straining for 2 days. 3. Avoid bending the hips repeatedly for 2 days. 4. You may go up and down stairs slowly Call if the following is noted 1. Bleeding, increasing swelling or pain at the access sites. 2. Increasing chest discomfort, especially upon taking a deep breath. 3. Increasing shortness of breath, at rest or with exertion. 4. Undue cough / phlegm 5. Difficulty or pain while swallowing. 6. Pain or change in color in the extremities. 7. Fever, chills, rigors. 8. Increasing headache or neurologic symptoms. 9. Dizziness, fainting, palpitations Stop bisoprolol
[2023-09-03 07:59] VITALS: BP 135/78; PULSE 65; RESP 17; TEMP 98
== END 2023-09-03 10:17 | disposition home or self-care (01) ==
LOC: CATHEP 09:46 → 6NMEDSUR 14:07 → CATHEP 09-03 10:17
PROVIDERS: ATTEND Internal Medicine Clinical Cardiac Electrophysiology
DX: I48.0 Paroxysmal atrial fibrillation (principal); I49.5 Sick sinus syndrome; I10 Essential (primary) hypertension; G47.30 Sleep apnea, unspecified; E78.5 Hyperlipidemia, unspecified; Z79.01 Long term (current) use of anticoagulants; Z79.899 Other long term (current) drug therapy; Z85.828 Personal history of other malignant neoplasm of skin; Z87.891 Personal history of nicotine dependence; Z90.79 Acquired absence of other genital organ(s); Z98.890 Other specified postprocedural states
CPT/HCPCS: 93005; 93656; 86900; 86901; 80053; 84443; 85025; 86850; C1894 ×2; C1769 ×4; C1760 ×2; C1730 ×2; C1759; C1893; C1733; C1766; J0330; J1644 ×3; J2001 ×2; J3010; J2704; Q9967; J2371 ×2; J1596